=== PATIENT | male | born 1990 ===

== ENCOUNTER 2016-07-01 00:24 | Emergency (ER) | payer SELFPAY ==
[~2016-07-01] VITALS: Ht 167.6 cm; Wt 122.5 kg
[2016-07-01 00:40] VITALS: Ht 167.6 cm; Wt 122.5 kg
[2016-07-01 01:55] LABS: ADD SCAN DIFF NO
[2016-07-01 01:56] LABS: BASOPHIL # 0.1 10^3/ul (0.0-0.1); BASOPHILS % 0.6 % (0.0-2.0); EOSINOPHILS # 0.5 10^3/ul (0.0-0.5); HEMATOCRIT 49.7 % (42.0-52.0); HEMOGLOBIN 17.4 g/dl (14.0-18.0); LYMPHOCYTES # 4.4 10^3/ul (0.8-2.9); LYMPHOCYTES % 27.3 % (15.0-51.0); MEAN CORPUSCULAR HEMOGLOBIN 30.8 pg (29.0-33.0); MEAN PLATELET VOLUME 9.9 fl (7.4-10.4); MONOCYTE # 1.1 10^3/ul (0.3-0.9); MONOCYTES % 6.9 % (0.0-11.0); NEUTROPHIL # 9.9 10^3/ul (1.6-7.5); NEUTROPHILS % 61.3 % (39.0-77.0); PLATELET COUNT 349 10^3/UL (140-415); RED BLOOD COUNT 5.65 10^6/ul (4.70-6.10); WHITE BLOOD COUNT 16.2 10^3/ul (4.8-10.8)
--- NOTE | 2016-07-01 01:59 | ERD ---
ER Documentation Chief Complaint Date/Time DATE: 07/01/16 TIME: 01:58 Chief Complaint left arm numbness & tingling HPI 26-year-old male presents here in emergency department for complaint of left upper arm numbness and tingling alternating with the right upper arm numbness and tingling for a month now. It radiates to the chest area. Patient denies any chest pain. Patient denies any dizziness. Patient denies any dyspnea on exertion or dyspnea on lying down. Patient did not take any medications to help with symptoms. Patient denies any numbness or tingling of present the body. Patient denies any neck pain. Patient is worried about his heart and some stroke symptoms, he has history of hypertension the family. She denies any palpitations or regular heartbeat. Patient denies any changes in balance or memory. Patient denies any headache. ROS All systems reviewed and are negative except as per history of present illness. Medications Home Meds Reported Medications [none] Unknown Strength No Conflict Check 07/01/16 Allergies Allergies: Coded Allergies: No Known Allergy (Unverified , 07/01/16) PMhx/Soc Medical and Surgical Hx: pt denies Surgical Hx History of Surgery: No Hx Neurological Disorder: No Hx Respiratory Disorders: Yes (BRONCHITIS) Hx Cardiac Disorders: No Hx Miscellaneous Medical Probl: No Hx Alcohol Use: Yes Hx Substance Use: Yes (MARIJUANA) Hx Tobacco Use: Yes Smoking Status: Current every day smoker FmHx Family History: No coronary disease, No diabetes, No other Physical Exam Vitals Vital Signs Date Time Temp Pulse Resp B/P Pulse Ox O2 Delivery O2 Flow Rate FiO2 07/01/16 00:40 98.9 98 18 154/93 97 Physical Exam GENERAL: The patient is well developed and appropriate for usual state of health, in no apparent distress. CHEST: Clear to auscultation bilaterally. There are no rales, wheezes or rhonchi. HEART: Regular rate and rhythm. No murmurs, clicks, rubs or gallops. No S3 or S4. ABDOMEN: Soft, nontender and nondistended. Good bowel sounds. No rebound or guarding. No gross peritonitis. No gross organomegaly or masses. No Dugan sign or McBurney point tenderness. BACK: No midline or flank tenderness. EXTREMITIES: Equal pulses bilaterally. There is no peripheral clubbing, cyanosis or edema. No focal swelling or erythema. Full range of motion. Grossly neurovascularly intact. NEURO: Alert and oriented. Cranial nerves 2-12 intact. Motor strength in all 4 extremities with 5/5 strength. Sensation grossly intact. Normal speech and gait. SKIN: There is no apparent rash or petechia. The skin is warm and dry. HEMATOLOGIC AND LYMPHATIC: There is no evidence of excessive bruising or lymphedema. No gross cervical, axillary, or inguinal lymphadenopathy. Result Diagram: 07/01/16 01507/01/16 0152 Results 24 hrs Laboratory Tests Test 07/01/16 01:52 White Blood Count 16.210^3/ul Red Blood Count 5.6510^6/ul Hemoglobin 17.4g/dl Hematocrit 49.7% Mean Corpuscular Volume 88.0fl Mean Corpuscular Hemoglobin 30.8pg Mean Corpuscular Hemoglobin Concent 35.0g/dl Red Cell Distribution Width 12.0% Platelet Count 48028^3/UL Mean Platelet Volume 9.9fl Neutrophils % 61.3% Lymphocytes % 27.3% Monocytes % 6.9% Eosinophils % 3.0% Basophils % 0.6% Nucleated Red Blood Cells % 0.0/100WBC Neutrophils # 9.910^3/ul Lymphocytes # 4.410^3/ul Monocytes # 1.110^3/ul Eosinophils # 0.510^3/ul Basophils # 0.110^3/ul Nucleated Red Blood Cells # 0.010^3/ul Sodium Level 143mmol/L Potassium Level 4.0mmol/L Chloride Level 104mmol/L Carbon Dioxide Level 27mmol/L Anion Gap 16 Blood Urea Nitrogen 16mg/dl Creatinine 1.09mg/dl Glucose Level 93mg/dl Calcium Level 9.7mg/dl Total Bilirubin 0.2mg/dl Direct Bilirubin 0.00mg/dl Indirect Bilirubin 0.2mg/dl Aspartate Amino Transf (AST/SGOT) 35IU/L Alanine Aminotransferase (ALT/SGPT) 53IU/L Alkaline Phosphatase 81IU/L Total Protein 8.3g/dl Albumin 4.3g/dl Globulin 4.00g/dl Albumin/Globulin Ratio 1.07 EKG was done, read by me and is normal sinus rhythm at a rate of 95, normal axis , there is no ST changes or changes in the EKG that indicates any cardiac emergencies at this time. Patient's EKG was also reviewed by Dr. Preciado. Impression: no acute findings on EKG Procedures/MDM Medical decision making: Patient's symptoms of numbness and tingling nonspecific at this time, it can be neuropathic pain, no electrolyte imbalance noted. Other causes can be explored by primary care doctor such as autoimmune disorders, rheumatologic diseases, neuropathic disorders, no diabetes noted at this time. No suspicion for neurological emergencies at this time. Patient's neurologic exam is normal. Low suspicion for cardiopulmonary emergencies at this time, EKG is normal. Patient is advised to follow-up with primary doctor once today for reevaluation of symptoms. Patient is advised to return to emergency department for any worsening symptoms Departure Diagnosis: Primary Impression: Paresthesia Condition: Stable Patient Instructions: DANIEL Kelsey NP Jul 01, 2016 01:59
[2016-07-01 02:36] LABS: ALBUMIN 4.3 g/dl (3.3-4.9)
[2016-07-01 02:39] LABS: ALBUMIN/GLOBULIN RATIO 1.07; BILIRUBIN,INDIRECT 0.2 mg/dl (0-1.1); BILIRUBIN,TOTAL 0.2 mg/dl (0.2-1.3); CREATININE 1.09 mg/dl (0.61-1.24); TOTAL PROTEIN 8.3 g/dl (6.1-8.1)
[2016-07-01 02:40] LABS: CALCIUM 9.7 mg/dl (8.4-10.2)
[2016-07-01 03:28] VITALS: BP 147/92; PULSE 84; RESP 16; TEMP 98.3
== END 2016-07-01 03:30 | disposition home or self-care (01) ==
LOC: FTE 00:24
DX: R20.2 Paresthesia of skin (principal); F17.210 Nicotine dependence, cigarettes, uncomplicated; R07.9 Chest pain, unspecified
CPT/HCPCS: 36415; 80053; 85025; 93005